=== PATIENT | female | born 1975 | race Caucasian/White ===

== ENCOUNTER → 2020-08-03 | Outpatient (CLI) | payer OTHER ==
[2020-08-03 11:18] VITALS: BP 120/65
--- NOTE | 2020-08-03 11:18 | Cardiology Stress Test Report ---
Stress Test Report Date of Procedure/Referring: Date of Procedure: Aug 03, 2020 PCP Clifford Alexander MD Admitting Physician No,Local Physician Indications: Chest pain Baseline Heart Rate: 78 Baseline Blood Pressure: Blood Pressure Systolic: 120 Blood Pressure Diastolic: 65 Baseline EKG: Baseline EKG: normal sinus rhythm Summary/Conclusion: Summary: In summary, the patient started exercising with a baseline heart rate, blood pressure and EKG mentioned above Patient was able to exercise for a total of 7minutes on Tahir protocol, METs 8.5 Maximum heart rate 169 Maximum blood pressure 161/49 Stress EKG, Minimal nondiagnostic changes Recovery EKG , Return to baseline Conclusion: 1. Good exercise tolerance for a total of 7 minutes on Tahir protocol, 8.5 METs, achieving 95 percent of maximum expected heart rate 2. Minimal nondiagnostic EKG changes with exercise returned to baseline during recovery 3. No arrhythmia was noted CLIFFORD ALEXANDER MD Aug 03, 2020 11:18 am
== END ==
LOC: CARD 09:19
PROVIDERS: ATTEND Internal Medicine Cardiovascular Disease
DX: K21.9 Gastro-esophageal reflux disease without esophagitis (principal); Z82.49 Family history of ischemic heart disease and other diseases of the circulatory system
CPT/HCPCS: 93017; 93306